=== PATIENT | female | born 1965 | race Two or more races ===

== ENCOUNTER 2024-12-20 14:42 | Outpatient (CLI) | payer OTHER ==
[~2024-12-20 14:42] MED LIST: ALDACTONE100 MG; AMLODIPINE-OLM1 EAC1; DICLOFENAC POTA50 MG PO; LIPITOR20 MG
== END 2024-12-20 14:45 | disposition home or self-care (01) ==
LOC: SONOGRAMA 14:42
DX: M25.811 Other specified joint disorders, right shoulder (principal); M75.51 Bursitis of right shoulder; M75.80 Other shoulder lesions, unspecified shoulder

== ENCOUNTER 2025-02-09 07:35 | Outpatient (CLI) | payer OTHER ==
[~2025-02-09 07:35] MED LIST changes: +PREDNISONE10 M2 PO
== END 2025-02-09 07:42 | disposition home or self-care (01) ==
LOC: MRI 07:35
PROVIDERS: ATTEND Physical Medicine & Rehabilitation
DX: R10.32 Left lower quadrant pain (principal)
CPT/HCPCS: 73221

== ENCOUNTER 2025-02-14 15:38 | Outpatient (CLI) | payer OTHER ==
[2025-02-14 16:23] LABS: BUN CREA RATIO 22.0 (7.0-25.0); CREATININE SERUM 0.83 mg/dL (0.55-1.02); GFR 68.36; GLUCOSE FASTING 101.0 mg/dL (65-100); OSMOLALITY SERUM 285.0 MOSM/KG (275-295)
== END 2025-02-14 15:44 | disposition home or self-care (01) ==
LOC: LAB 15:38
PROVIDERS: ATTEND Family Medicine
DX: R94.4 Abnormal results of kidney function studies (principal)

== ENCOUNTER 2025-02-15 09:47 | Outpatient (CLI) | payer OTHER | END 2025-02-15 11:56 | disposition home or self-care (01) | LOC: TOM 09:47 | PROVIDERS: ATTEND Family Medicine | DX: R10.32 Left lower quadrant pain (principal); R22.1 Localized swelling, mass and lump, neck | CPT/HCPCS: 74177; 76536; Q9965 ==